=== PATIENT | female | born 1970 | race Caucasian/White ===

== ENCOUNTER 2025-04-06 08:29 | Outpatient (CLI) | payer BC | END 2025-04-06 08:30 | disposition home or self-care (01) | LOC: CSHULT 08:29 | PROVIDERS: ATTEND Family Medicine | DX: E04.1 Nontoxic single thyroid nodule (principal); Z12.31 Encounter for screening mammogram for malignant neoplasm of breast | CPT/HCPCS: 76536; 77063; 77067 ==